=== PATIENT | female | born 1970 | race Caucasian/White ===

== ENCOUNTER 2017-04-21 16:58 | Emergency (ER) | payer BC ==
[2017-04-21 17:19] VITALS: BP 160/98
--- NOTE | 2017-04-21 17:36 | EDM.PDOC ---
ED HPI GENERAL MEDICAL PROBLEM - General Chief Complaint: Respiratory Problem Stated Complaint: SINUS INFECTION/CHEST PAIN/FEVER Time Seen by Provider: 04/21/17 17:22 - History of Present Illness INITIAL COMMENTS - FREE TEXT/NARRATIVE: HISTORY AND PHYSICAL: History of present illness: Patient is a 46-year-old female who was seen an outside clinic and diagnosed with sinusitis and placed on Augmentin on Sunday for sinus congestion pressure and drainage. She has been compliant with the antibiotic but says that now she is feeling like she has a bronchitic cough and spasm of her airways and the cough is hurting her throat. She says she does not feel like she is getting better. She doesn't have any shortness of breath but she continues to have the sinus pressure but has not used any [id number]-[id number] meds such as Claritin or Kanwal. She is tolerating fluids and has no vomiting or diarrhea and is not and is currently on her period. The patient is also concerned because she does not feel like she is getting any better despite taking the antibiotics for the last 4 days Review of systems: As per history of present illness and below otherwise all systems reviewed and negative. Past medical history: As per history of present illness and as reviewed below otherwise noncontributory. Surgical history: As per history of present illness and as reviewed below otherwise noncontributory. Social history: No reported history of drug or alcohol abuse. Family history: As per history of present illness and as reviewed below otherwise noncontributory. Physical exam: Gen.: Well-developed well-nourished female who is nasal quality to voice but is nontoxic. Vital signs are noted by me HEENT: Atraumatic, normocephalic, pupils reactive, negative for conjunctival pallor or scleral icterus, mucous membranes moist, throat clear, neck supple, nontender, trachea midline. There is no cervical adenopathy or nuchal rigidity. Nasal passages and turbinates are boggy and red but are not completely inflamed. She does have sinus pressure and tenderness mostly in the frontal maxillary sinuses Lungs: Clear to auscultation, breath sounds equal bilaterally, chest nontender. Heart: S1S2, regular rate and rhythm no overt murmurs Abdomen: Deferred Pelvis: Deferred Genitourinary: Deferred. Rectal: Deferred. Extremities: Atraumatic, full range of motion Neurovascular unremarkable. Neuro: Awake, alert, oriented. Cranial nerves II through XII unremarkable. Cerebellum unremarkable. Motor and sensory unremarkable throughout. Exam nonfocal. Diagnostics: [] Therapeutics: Spacer and spacer teaching Impression: Sinusitis on therapy, acute bronchitis Definitive disposition and diagnosis as appropriate pending reevaluation and review of above. Face Pain Score (Numeric/FACES): 7 - Related Data Allergies Allergy/AdvReac Type Severity Reaction Status Date / Time No Known Allergies Allergy Verified 04/21/17 17:19 Home Meds: Home Meds Levothyroxine Sodium [Synthroid] 150 mcg PO DAILY 02/28/15 [History] Past Medical History HEENT History: Reports: None Cardiovascular History: Reports: None Respiratory History: Reports: None Gastrointestinal History: Reports: None Genitourinary History: Reports: None CERTIFICATION OFFICER History: Reports: None Musculoskeletal History: Reports: None Neurological History: Reports: None Psychiatric History: Reports: None Endocrine/Metabolic History: Reports: None Hematologic History: Reports: None Immunologic History: Reports: None Oncologic (Cancer) History: Reports: None Dermatologic History: Reports: None - Infectious Disease History Infectious Disease History: Reports: None - Past Surgical History Head Surgeries/Procedures: Reports: None GI Surgical History: Reports: Appendectomy Female Surgical History: Reports: Breast Implant Social & Family History - Family History Family Medical History: Noncontributory - Tobacco Use Smoking Status *Q: Never Smoker Second Hand Smoke Exposure: No - Caffeine Use Caffeine Use: Reports: None - Recreational Drug Use Recreational Drug Use: No ED ROS GENERAL - Review of Systems Review Of Systems: ROS reveals no pertinent complaints other than HPI. ED EXAM, GENERAL - Physical Exam Exam: See Below (See dictation) Course - Vital Signs Last Recorded V/S: Last Vital Signs Temp 36.7 C 04/21/17 17:16 Pulse 89 04/21/17 17:16 Resp 16 04/21/17 17:16 BP 160/98 H 04/21/17 17:16 Pulse Ox 99 04/21/17 17:16 Departure - Departure Time of Disposition: 17:34 Disposition: Home, Self-Care 01 Condition: Good Clinical Impression: Acute bronchitis Qualifiers: Bronchitis organism: unspecified organism Qualified Code(s): J20.9 - Acute bronchitis, unspecified Sinusitis Qualifiers: Sinusitis location: unspecified location Chronicity: acute Recurrence: not specified as recurrent Qualified Code(s): J01.90 - Acute sinusitis, unspecified - Discharge Information Referrals: PCP,None [Primary Care Provider] - Additional Instructions: The following information is given to patients seen in the emergency department who are being discharged to home. This information is to outline your options for follow-up care. We provide all patients seen in our emergency department with a follow-up referral. The need for follow-up, as well as the timing and circumstances, are variable depending upon the specifics of your emergency department visit. If you don't have a primary care physician on staff, we will provide you with a referral. We always advise you to contact your personal physician following an emergency department visit to inform them of the circumstance of the visit and for follow-up with them and/or the need for any referrals to a consulting specialist. The emergency department will also refer you to a specialist when appropriate. This referral assures that you have the opportunity for followup care with a specialist. All of these measure are taken in an effort to provide you with optimal care, which includes your followup. Under all circumstances we always encourage you to contact your private physician who remains a resource for coordinating your care. When calling for followup care, please make the office aware that this follow-up is from your recent emergency room visit. If for any reason you are refused follow-up, please contact the [facility] emergency department at and ask to speak to the emergency department charge nurse. [facility] Primary care- Internal [place] [address] Please continue and finish the Augmentin that you have. Use [id number]-asvewht Claritin or Kanwal or Benadryl to decongest your sinuses and also use over-the- counter Flonase to promote drainage of the fluid. Push hydration and rest. Use [id number] Tylenol or ibuprofen for any pain and fevers. Please use your inhaler as directed with the spacer you have been given and take the Medrol pack as directed. Please call and follow-up with one of our providers in the clinic for reevaluation and return to ER as needed and as discussed
== END 2017-04-21 17:48 | disposition home or self-care (01) ==
LOC: MW.ED 16:58
DX: J01.90 Acute sinusitis, unspecified (principal); J20.9 Acute bronchitis, unspecified; Z79.899 Other long term (current) drug therapy
CPT/HCPCS: 99282; 99283